=== PATIENT | female | born 1975 | race Caucasian/White ===

== ENCOUNTER 2018-06-07 05:00 | Inpatient (IN) | payer OTHER ==
[~2018-06-07] VITALS: Ht 162.6 cm; Wt 78.9 kg
[2018-06-07 05:29] VITALS: Ht 162.6 cm; Wt 78.9 kg
--- NOTE | 2018-06-07 05:59 | TRIAGE ---
OB Triage Datetime Report Generated by CPN: 06/07/2018 05:59 Datetime: 06/07/2018 05:45 Time of Arrival: 06/07/2018 05:00 EGA: 39.0 Arrived By: Ambulatory Arrived From: Home Chief Complaint: CONTRACTIONS FOR 24 HRS Movement: Present Contractions: Regular Contractions: Q 5 MION Rupture of Membranes: Denies Vaginal Discharge: Denies Patient Complaints: None Additional Patient Complaints: PT. CAME IN WITH PNR, HERNIA SURGERY 3 YRS AGO Time Provider Notified: 06/07/2018 05:20 [facility] Initial Plan: EFM, VE, CALL MD FOR ORDERS Datetime: 06/07/2018 05:18 Vaginal Exam Dilatation (cms): 5.0 Effacement (%): 90 Station: -1 Exam By: PUMA Vaginal Bleeding: None Cervix, Consistency: Soft Cervix, Position: Posterior Datetime: 06/07/2018 05:15 Assessment Type: Triage Maternal Assessment Level of Consciousness: Fully Conscious DTR's/Clonus: DTRs 2+; No Clonus Headache: Denies Blurred Vision: No Respiratory Effort: Unlabored; Regular Rhythm; Equal Expansion Breath Sounds, Left: Clear and Equal Breath Sounds, Right: Clear and Equal Nausea/Vomiting: Denies RUQ Epigastric Pain: Denies Lower Extremities Edema: None Upper Extremities Edema: None Facial Edema: None Fall Risk Assessment History of Falling: (0) No Secondary Diagnosis: (0) No Ambulatory Aid: (0) Bedrest/Nurse Assist IV Therapy: (0) No Gait: (0) Normal/Bedrest/Immobile Mental Status: (0) Oriented to Own Ability Fall Score: 0 Fall Risk Score Definition: No Risk: No action required
[2018-06-07] MEDS ORDERED: CARBOPROST 250 MCG INJ IM PRN ×2 (06:00→10:00)
[2018-06-07] MEDS ORDERED: OXYTOCIN 30 UNITS/LR 500 ML IV PRN ×2 (06:00→10:00)
[2018-06-07] MEDS ORDERED: LIDOCAINE 1% (MPF) 30 ML INJ INJ PRN (06:00)
[2018-06-07] MEDS ORDERED: MISOPROSTOL 200 MCG TAB PR PRN ×2 (06:00→10:00)
[2018-06-07] MEDS ORDERED: OXYTOCIN 30 UNITS/LR 500 ML IV SCH ×2 (06:00)
[2018-06-07] MEDS ORDERED: BUTORPHANOL 2 MG INJ IV PRN (06:00)
[2018-06-07] MEDS ORDERED: METHYLERGONOVINE 0.2 MG INJ IM PRN (06:00)
[2018-06-07] MEDS: LACTATED RINGER'S 1,000 ML IV SCH ×3 (06:32→08:57)
--- NOTE | 2018-06-07 07:16 | PREAC ---
Date/Time of Note Date/Time of Note DATE: 06/07/18 TIME: 07:15 Anesthesia Eval and Record Evaluation Time Pre-Procedure Interview DATE: 06/07/18 TIME: 07:15 Age 43 Sex female NPO: 8 hrs Preoperative diagnosis labor pain Planned procedure epidural Past Medical History Past Medical History: Includes : Gestational age: (41) Surgery & Anesthesia Issues No known issue Meds Anticoagulation: No Beta Terri within 24 hr: No Reason Beta Terri not given: Pt. not on B-Terri No Active Prescriptions or Reported Meds Current Medications Lactated Ringer's 1,000 ml @ 125 mls/hr Q8H IV Last administered on 06/07/18at 06:32; Admin Dose 125 MLS/HR; Start 06/07/18 at 05:31 Butorphanol Tartrate (Stadol) 2 mg Q2H PRN IV .PAIN; Start 06/07/18 at 06:00 Lidocaine (Xylocaine 1% (Mpf)) 30 ml ONCE PRN INJ .EPISIOTOMY; Start 06/07/18 at 06:00 Oxytocin/Lactated Ringer's 500 ml @ 500 mls/hr ONCE POST IV ; Start 06/07/18 at 06:00 Oxytocin/Lactated Ringer's 500 ml @ 125 mls/hr POST IV ; Start 06/07/18 at 06:00 Oxytocin/Lactated Ringer's 500 ml @ 0 mls/hr ONCE PRN IV .VAGINAL BLEEDING; Start 06/07/18 at 06:00 Methylergonovine Maleate (Methergine) 0.2 mg ONCE PRN IM .VAGINAL BLEEDING; Start 06/07/18 at 06:00 Carboprost Tromethamine (Hemabate) 250 mcg ONCE PRN IM .VAGINAL BLEEDING; Start 06/07/18 at 06:00 Misoprostol (Cytotec) 1,000 mcg ONCE PRN NH .VAGINAL BLEEDING; Start 06/07/18 at 06:00 Meds reviewed: Yes Allergies Coded Allergies: Penicillins (Verified Allergy, Unknown, 07/26/09) Allergies Reviewed: Yes Labs/Studies Labs Reviewed: Reviewed by anesthesiologist Result Diagram: 06/07/18 0545 Laboratory Tests 06/07/18 05:45 Blood Bank Test 06/07/18 05:45 Blood Type O POSITIVE Rh Immune Globulin Candidate NO test: Positive Studies: ECG (n/a), CXR (n/a) Pre-procedure Exam Airway: Adequate mouth opening Mallampati: Mallampati I Teeth: Normal Lung: Normal Heart: Normal ASA Physical Status ASA physical status: 2 Emergency: None Planned Anesthetic Neuraxial: Epidural Planned Pain Management Epidural Pre-operative Attestations Prior to commencing anesthesia and surgery, the patient was re-evaluated, there was verification of: *The patient's identity *The results of appropriate recent lab work and preoperative vital signs *The above evaluation not changing prior to induction *Anesthetic plan, risk benefits, alternative and complications discussed with patient/family; questions answered; patient/family understands, accepts and wishes to proceed. WAYNE JIMENEZ MD Jun 07, 2018 07:16
[2018-06-07] MEDS ORDERED: FENTAnyl 2MCG/ML-ROPIV 0.2% 100 ML ONE (07:27)
--- NOTE | 2018-06-07 07:37 | HP ---
Date/Time of Note Date/Time of Note DATE: 06/07/18 TIME: 07:36 OB - History Hx of Present Free Text/Dictation 43 YO with IUP at 39 weeks with EDC 06/14/2018 who presents to L&D in labor. GBS negative. she just received epidural. AROM done. + Mec. she is 8 cm dilated at this time. Care: Good Care Ultrasounds: Normal mid trimester US Obstetrical Complications: None Medical Complications: None Past Family/Social History * Past Medical, Surgical, Family and Obstetric Histories reviewed from chart. OB Admission Exam Physical Exam HEENT: WNL Heart: Rhythm Normal Lungs: Clear, Equal Abdomen: WNL Extremities: Normal Reflexes: Normal Cervical Dilatation: 8cm Last 72 hours Lab Results CBC & BMP 06/07/18 05:45 OB Assessment/Plan Reason for admission: active labor Plan: Expectant Management DICKSON MARQUES MD Jun 07, 2018 07:37
--- NOTE | 2018-06-07 09:28 | PAC ---
Date/Time of Note Date/Time of Note DATE: 06/07/18 TIME: 09:28 Post-Anesthesia Notes Post-Anesthesia Note Last documented vital signs BP 123/58, HR 89. Sat 99%, tempm 98 Rr 19 Activity: WNL Respiratory function: WNL Cardiovascular function: WNL Mental status: Baseline Pain reasonably controlled: Yes Hydration appropriate: Yes Nausea/Vomiting absent: No WAYNE JIMENEZ MD Jun 07, 2018 09:28
[2018-06-07] MEDS ORDERED: FENTAnyl 2MCG/ML-ROPIV 0.2% 100 ML BAG EPI SCH (09:30)
[2018-06-07] MEDS ORDERED: NALOXONE (0.4 MG/ML) INJ IV PRN (09:30)
--- NOTE | 2018-06-07 09:40 | LDN ---
Date/Time of Note Date/Time of Note DATE: 06/07/18 TIME: 09:37 Delivery Summary 43 YO with IUP at 39 weeks. she is s/p of viable female with intact perineum, tight nucal cord x 1 was clamped and cut at perineum. placenta delivered intact and spontaneously. EBL 300 ml Episiotomy: No Perineal laceration: 0 Anesthesia type: Epidural Sponge & Needle done & correct: Yes All needle counts correct: Yes Any foreign bodies felt in the: No Delivery Information Sex Infant Sex: female Apgars 1 Minute: 9 5 Minute: 9 Suctioning Nose & mouth suctioned at hong: No Delee suction performed: No Umbilical Cord Umbilical cord with: 3 Vessels Cord presentations: nuchal cord Nuchal cord present X: 1 Cord Blood was obtained: Yes Mother & Baby Disposition Disposition Mom & Baby to Maternity; Good: Yes DICKSON MARQUES MD Jun 07, 2018 09:40
[2018-06-07] MEDS ORDERED: NA PHOSPHATE/BIPHOS 133 ML ENEMA PR PRN (10:00)
[2018-06-07] MEDS ORDERED: WITCH HAZEL/GLYCERIN PAD PR PRN (10:00)
[2018-06-07] MEDS ORDERED: HYDROCODONE/APAP (5/325) TAB PO PRN ×2 (10:00)
[2018-06-07] MEDS ORDERED: DIPHENHYDRAMINE 25 MG CAP PO PRN (10:00)
[2018-06-07] MEDS ORDERED: ONDANSETRON 4 MG TAB PO PRN (10:00)
[2018-06-07] MEDS ORDERED: ONDANSETRON 4 MG INJ IV PRN (10:00)
[2018-06-07] MEDS ORDERED: SENNA/DOCUSATE NA (8.6MG/50MG) TAB PO PRN (10:00)
[2018-06-07] MEDS ORDERED: MAGNESIUM HYDROXIDE 30ML CUP PO PRN (10:00)
[2018-06-07] MEDS ORDERED: DIBUCAINE 1% 30 GM OINT TOP PRN (10:00)
[2018-06-07] MEDS ORDERED: BENZOCAINE 20% 56 ML SPRAY TOP PRN (10:00)
[2018-06-07] MEDS ORDERED: LANOLIN HPA 1 PKT TOP PRN (10:00)
[2018-06-07] MEDS ORDERED: DIPHENHYDRAMINE 50 MG INJ IV PRN (10:00)
[2018-06-07 11:00] VITALS: BP 105/55; PULSE 88; RESP 18
[2018-06-07 11:30] VITALS: BP 97/58; PULSE 104; RESP 18
[2018-06-07 12:00] VITALS: BP 110/58; PULSE 68; RESP 18
[2018-06-07] MEDS: IBUPROFEN 600 MG TAB PO SCH ×3 (12:11→23:29)
[2018-06-07 18:05] VITALS: BP 102/64; PULSE 76; RESP 18
[2018-06-07] MEDS: LACTATED RINGER'S 1,000 ML IV* SCH (19:40)
[2018-06-07 19:50] VITALS: BP 107/56; PULSE 77; RESP 18
[2018-06-07] MEDS: SENNA/DOCUSATE NA (8.6MG/50MG) TAB PO SCH (21:33)
[2018-06-07 23:50] VITALS: BP 112/69; PULSE 79; RESP 18
[2018-06-08] MEDS: LACTATED RINGER'S 1,000 ML IV* SCH (01:40)
[2018-06-08 03:50] VITALS: BP 104/57; PULSE 98; RESP 19
[2018-06-08] MEDS: LACTATED RINGER'S 1,000 ML IV SCH (05:06)
[2018-06-08] MEDS: IBUPROFEN 600 MG TAB PO SCH ×4 (06:00→23:56)
[2018-06-08 07:45] VITALS: BP 122/73; PULSE 99; RESP 20
--- NOTE | 2018-06-08 07:54 | DS ---
Date/Time of Note Date/Time of Note DATE: 06/08/18 TIME: 07:53 Obstetrical Discharge Record Final Diagnosis Final Diagnosis: Term delivered Vaginal Delivery Obstetrical Delivery: Spontaneous Complications Augmentation: Yes Induction: No Rupture of Membranes: No Condition on Discharge Physical Assessment Voiding: Yes Bowel Movement: Yes Breast: Soft, non-tender, Filling Fundus: Firm Abdomen and Incision: soft, not tender. firm fundus at U Calf Tenderness: No Patient Condition: Good DICKSON MARQUES MD Jun 08, 2018 07:54
[2018-06-08] MEDS: SENNA/DOCUSATE NA (8.6MG/50MG) TAB PO SCH ×2 (09:35→21:06)
[2018-06-08 16:13] VITALS: BP 112/78; PULSE 83; RESP 20
[2018-06-08 19:30] VITALS: BP 110/61; PULSE 84; RESP 19
[2018-06-09 03:30] VITALS: BP 108/59; PULSE 80; RESP 18
[2018-06-09] MEDS: IBUPROFEN 600 MG TAB PO SCH ×2 (05:28→11:23)
[2018-06-09 08:05] VITALS: BP 108/70; PULSE 79; RESP 20
[2018-06-09] MEDS: SENNA/DOCUSATE NA (8.6MG/50MG) TAB PO SCH (08:46)
[2018-06-09] MEDS ORDERED: VARICELLA VACCINE LIVE/PF 1,350 UNIT/0.5 ML ML SC* ONE (09:00)
[2018-06-09] MEDS ORDERED: MEASLES,MUMPS,RUBELLA VACCINE INJ SC* ONE (09:00)
[2018-06-09] MEDS ORDERED: DIPHTH/TET/ACEL PERTUSS (ADULT) 0.5 ML VIAL IM* ONE (09:00)
== END 2018-06-09 13:24 | disposition home or self-care (01) | DRG 807 ==
LOC: L-D 05:00 → OBT 05:00 → L-D 05:21 → PP1 10:49
PROVIDERS: ADMIT Obstetrics & Gynecology; ATTEND Specialist
PROC: 10E0XZZ Delivery of Products of Conception, External Approach (ICD-10-PCS; principal; 2018-06-07)
PROC: 4A1HXCZ Monitoring of Products of Conception, Cardiac Rate, External Approach (ICD-10-PCS; 2018-06-07)
PROC: 10907ZC Drainage of Amniotic Fluid, Therapeutic from Products of Conception, Via Natural or Artificial Opening (ICD-10-PCS; 2018-06-07)
DX: O69.1XX0 Labor and delivery complicated by cord around neck, with compression, not applicable or unspecified (principal); Z37.0 Single live birth; Z3A.39 39 weeks gestation of pregnancy; Z88.0 Allergy status to penicillin
CPT/HCPCS: 62319; 85025; 85610; 85730; 86592; 86850; 86900; 86901; 87340; 90716; 99464; G0463; J2590; J3010; J7120